=== PATIENT | male | born 1935 | race Hispanic/Latino ===

== ENCOUNTER 2020-09-12 05:50 | Day surgery (SDC) | payer MEDICARE ==
[2020-09-06 11:41] LABS: Hemoglobin 16.3 gm/dl (11.8-15.2); Mean Corpuscular HGB Conc 34 % (32-34); Mean Corpuscular Volume 97 fl (84-94); Platelet Count 211 K/mm3 (140-440); Red Blood Count 4.97 M/mm3 (3.65-5.03); Red Cell Distribution Width 13.3 % (13.2-15.2)
[2020-09-06 11:57] LABS: Alanine Aminotransferase 25 units/L (7-56); BUN/Creatinine Ratio 20; Blood Urea Nitrogen 16 mg/dL (9-20); Hemolysis Index 6
[2020-09-12] MEDS ORDERED: LACTATED RINGERS 1,000 ML IV SCH (06:30)
[2020-09-12] MEDS ORDERED: BACTERIOSTATIC SODIUM CHLORIDE 0.9% 30 ML VIAL INFILTRATI ONE (06:31)
[2020-09-12] MEDS ORDERED: ceFAZolin/STERILE WATER 2 GM/20 ML SYRINGE IV NR (06:45)
[2020-09-12] MEDS ORDERED: ONDANSETRON 4 MG/2 ML INJ IV PRN (07:21)
--- NOTE | 2020-09-12 07:22 | Anesthesia Day of Surgery ---
Anesthesia Day of Surgery - Day of Surgery Patient Examined: Yes Patient H&P Reviewed: Yes Patient is NPO: Yes Cardiac Clearance: Yes
[2020-09-12] MEDS ORDERED: LIDOCAINE MPF (2%) 20 MG/1 ML VIAL 5 ML ONE (07:23)
[2020-09-12] MEDS ORDERED: fentaNYL 100 MCG/2 ML INJ ONE (07:23)
[2020-09-12] MEDS ORDERED: propofoL 200 MG/20 ML VIAL IV ONE (07:23)
--- NOTE | 2020-09-12 07:24 | Anesthesia Consultation ---
Anesthesia Consult and Med Hx Date of service: 09/12/20 - Airway Anesthetic Teeth Evaluation: Bridges ROM Head & Neck: Adequate Mental/Hyoid Distance: Adequate Mallampati Class: Class II Intubation Access Assessment: Good - Pre-Operative Health Status ASA Pre-Surgery Classification: ASA3 Proposed Anesthetic Plan: General - Pulmonary Hx Smoking: Yes (Former) Hx Sleep Apnea: Yes (Does not use CPAP) - Cardiovascular System Hx Hypertension: Yes Hx Cardia Arrhythmia: Yes (Hx PAF) - Central Nervous System Hx Neuromuscular Disorder: Yes (Neuropathy) Hx Psychiatric Problems: No - Endocrine Hx Renal Disease: Yes (Stones) Hx Liver Disease: Yes (Fatty) - Other Systems Hx Cancer: Yes
[2020-09-12] MEDS ORDERED: HYDROmorphone 1 MG/1 ML INJ IV PRN (07:30)
[2020-09-12] MEDS ORDERED: WATER FOR IRRIG STERILE 2000 ML IR ONE (08:07)
[2020-09-12] MEDS ORDERED: WATER FOR IRRIG STERILE 1,500 ML BOTTLE IR ONE (08:07)
[2020-09-12] MEDS ORDERED: PHENYLEPHRINE/NS 1,000 MCG/10 ML SYRINGE (OR USE) IV ONE (08:30)
[2020-09-12] MEDS ORDERED: ONDANSETRON 4 MG/2 ML INJ ONE (08:37)
--- NOTE | 2020-09-12 08:45 | Short Stay Summary ---
Short Stay Documentation Date of service: 09/12/20 - History H&P: obtained from office - Allergies and Medications Current Medications: Allergies metformin Allergy (Verified 09/05/20 16:33) Unknown Home Medications Medication Instructions Recorded Confirmed Last Taken Type Acetaminophen [Tylenol] 650 mg PO Q4H PRN 09/05/20 09/05/20 09/11/20 History Ascorbic Acid [Vitamin C] 1,000 mg PO QAM 09/05/20 09/05/20 09/11/20 History Aspirin [Adult Aspirin] 81 mg PO DAILY 09/05/20 09/05/20 09/03/20 History Gabapentin [Neurontin] 200 mg PO BID 09/05/20 09/12/20 09/12/20 04:00 History Glimepiride [Amaryl] 1 mg PO QAM 09/05/20 09/05/20 09/11/20 History Lactobacillus Combination No.8 1 each PO DAILY 09/05/20 09/05/20 09/11/20 History [Adult Probiotic] Losartan [Cozaar] 50 mg PO HS 09/05/20 09/05/20 09/11/20 History Multivit-Min/Folic/Vit K/Lycop 1 each PO QAM 09/05/20 09/05/20 09/11/20 History [Men's 50 Plus Multivitamin Tab] Rosuvastatin Calcium [Crestor] 10 mg PO HS 09/05/20 09/05/20 09/11/20 History amLODIPine [Norvasc] 10 mg PO HS 09/05/20 09/05/20 09/11/20 History traZODone [Desyrel] 50 mg PO QHS 09/05/20 09/05/20 09/11/20 History Active Medications Cefazolin Sodium (Cefazolin/Sterile Water 2 Gm/20 Ml Syringe) 2 gm IV PREOP NR Stop: 09/13/20 06:44 Hydromorphone HCl (Hydromorphone 1 Mg/1 Ml Inj) 0.5 mg IV Q10MIN PRN PRN Reason: Pain , Severe (7-10) Stop: 09/12/20 20:00 Lactated Ringer's (Lactated Ringers) 1,000 mls @ 100 mls/hr IV DIRECT [place] Last Admin: 09/12/20 06:45 Dose: 100 mls/hr Documented by: Ondansetron HCl (Ondansetron 4 Mg/2 Ml Inj) 4 mg IV ONCE PRN PRN Reason: Nausea And Vomiting Stop: 09/12/20 16:00 - Brief post op/procedure progress note Date of procedure: 09/12/20 Pre-op diagnosis: RT renal stone, s/p stent Post-op diagnosis: same Procedure: RT ESWL, cysto , stent removal Anesthesia: GETA Surgeon: KEEGAN WEAVER Estimated blood loss: none Condition: stable - Hospital course Hospital course: macrobid & norco on chart - Disposition Condition at discharge: Stable Disposition: DC-01 TO HOME OR SELFCARE Short Stay Discharge Plan Follow up with: DAVINA CALLES MD [Primary Care Provider] - 7 Days
--- NOTE | 2020-09-12 09:18 | Operative Report ---
DATE OF SURGERY: 09/12/2020 PREOPERATIVE DIAGNOSIS: Right 1 cm renal stone, status post stent placement. POSTOPERATIVE DIAGNOSIS: Right 1 cm renal stone, status post stent placement. PROCEDURE: Right extracorporal shockwave lithotripsy, cystoscopy, stent removal. SURGEON: Jamey Duran MD. ANESTHESIA: General. ESTIMATED BLOOD LOSS: Minimal. FLUIDS: Crystalloid. COMPLICATIONS: No complications. INDICATIONS: This patient is an 85-year-old gentleman with a history of stones, underwent CT of abdomen and pelvis, was found to have a 1 cm stone lodged in the ureter, developed worsening pain, presented to [facility] where cystoscopy, stent was placed by Dr. Medina. He presents now for surgical intervention. DESCRIPTION OF PROCEDURE: On stress analyst film, poorly calcified, suggesting a soft stone. The patient was taken to the operating room after adequate general anesthesia. He was placed in a supine position. His stone was localized in 2 planes using fluoroscopy, as I mentioned poorly calcified stone could be appreciated. Extracorporal shockwave lithotripsy was administered with a maximum KV of 2500 shocks. A 5-minute renal pause after 200 shocks was performed. Adequate fragmentation could be appreciated towards the end of the procedure. He was prepped and draped. A rigid cystoscopy was performed. Stent was removed without difficulty. The patient tolerated the procedure well. He was extubated and taken to the recovery room. He will go home on [employer]. TID: [id number] RECEIPT: [id number] CRISTIAN/KALYAN
[2020-09-12 15:13] VITALS: BP 123/64
--- NOTE | 2020-09-12 17:15 | Post Anesthesia Evaluation ---
- Post Anesthesia Evaluation Patient Participated: Yes Airway Patent: Yes Stable Respiratory Function: Yes Nausea/Vomiting: No Temp > 96.8F: Yes Pain Manageable: Yes Adequeate Hydration: Yes Anesthesia Complications: No Block Receding Appropriately: Not Applicable Patient on Ventilator: No
== END 2020-09-12 12:00 | disposition home or self-care (01) ==
LOC: OR 05:50
PROVIDERS: ATTEND Urology
DX: N20.0 Calculus of kidney (principal); G62.9 Polyneuropathy, unspecified; E78.00 Pure hypercholesterolemia, unspecified; I10 Essential (primary) hypertension; G47.30 Sleep apnea, unspecified; M19.90 Unspecified osteoarthritis, unspecified site; Z79.899 Other long term (current) drug therapy; Z79.82 Long term (current) use of aspirin; Z88.8 Allergy status to other drugs, medicaments and biological substances; Z87.891 Personal history of nicotine dependence; Z98.41 Cataract extraction status, right eye; Z98.42 Cataract extraction status, left eye; Z90.49 Acquired absence of other specified parts of digestive tract; Z85.46 Personal history of malignant neoplasm of prostate; Z87.440 Personal history of urinary (tract) infections; Z98.890 Other specified postprocedural states
CPT/HCPCS: 36415; 50590; 52310; 80053; 82962; 85027; A4217; C1769; J0690; J1170; J2405; J2704; J7120; U0003; J2370; J3010